=== PATIENT | male | born 1935 | race Caucasian/White ===

== ENCOUNTER → 2017-01-22 | Outpatient (CLI) | payer OTHER | LOC: BHFA 11:00 | PROVIDERS: ATTEND Internal Medicine Cardiovascular Disease | DX: R00.1 Bradycardia, unspecified (principal) ==

== ENCOUNTER 2017-09-23 22:12 | Emergency (ER) | payer OTHER ==
--- NOTE | 2017-09-23 22:16 | EDPHY ---
H & P Time Seen by Provider: 09/23/17 22:15 HPI/ROS: HPI CHIEF COMPLAINT: Irregular pulse. HISTORY OF PRESENT ILLNESS: Patient very pleasant 82-year-old male, he denies having any cardiovascular history except a month ago he was in [place] any noticed his heart rate was having very significant pauses and felt lightheaded felt like he was going to pass out. He had a pacemaker placed in [place]. Patient states this was a month ago. He did follow up with Dr. Nogueira when he returns [facility]. He denies any cardiovascular disease except having this pacemaker. The pacemaker was placed in his right chest. He states tonight he was sitting and resting about to go to bed and decided check his pulse. He felt a irregularity of it and decided come the emergency room to be evaluated. He denies any chest pain or shortness of breath. Denies fast heart rate or slow. Denies feeling like he is going to pass out. Denies chest pain or shortness of breath or syncope. Denies feeling like he is going to pass out. Past Medical History: Hypertension, diabetes Past Surgical History: Recent right chest pacemaker. Social History: Denies daily use of drugs alcohol tobacco. Family History: Noncontributory ROS REVIEW OF SYSTEMS: A comprehensive 10 point review of systems is otherwise negative aside from elements mentioned in the history of present illness. Exam Constitutional appears well nontoxic no acute distress, triage nursing summary reviewed, vital signs reviewed, awake/alert. Eyes normal conjunctivae and sclera, EOMI, PERRLA. HENT normal inspection, atraumatic, moist mucus membranes, no epistaxis, neck supple/ no meningismus, no raccoon eyes. Respiratory clear to auscultation bilaterally, normal breath sounds, no respiratory distress, no wheezing. Cardiovascular right chest pacemaker insert and right chest clean incision line. rate normal, regular rhythm, no murmur, no edema, distal pulses normal. Gastrointestinal soft, non-tender, no rebound, no guarding, normal bowel sounds, no distension, no pulsatile mass. Genitourinary no CVA tenderness. Musculoskeletal no midline vertebral tenderness, full range of motion, no calf swelling, no tenderness of extremities, no meningismus, good pulses, neurovascularly intact. Skin pink, warm, & dry, no rash, skin atraumatic. Neurologic awake, alert and oriented x 3, AAOx3, moves all 4 extremities equally, motor intact, sensory intact, CN II-XII intact, normal cerebellar, normal vision, normal speech. Psychiatric normal mood/affect. Heme/Lymph/Immune no lymphadenopathy. Differential Diagnosis: Includes but is not limited to in a particular order cardiac arrhythmia, V-tach, VFib, AFib, other cardiac arrhythmia, bradycardia Medical Decision Making: Plan for this patient IV establishment with blood draw , check EKG and basic electrolytes, will add [employer] interrogate his pacemaker. Re-evaluation: EKG interpretation by me on record in [employer] system. Impression time of EK, this is an atrially paced rhythm. Otherwise unremarkable. I do not appreciate any signs of cardiac arrhythmia or ischemia. ED x-ray chest one view negative for acute cardiopulmonary disease. 1220: Patient has no chest pain or shortness of breath. He came because he thought his pulse was irregular. 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 His EKG is a paced rhythm. His blood work and electrolytes appropriate. Negative troponin. He has no chest pain or shortness of breath. 1220: We are waiting [employer] interrogation of the pacemaker. 0200AM: [employer] here to evaluate Pacer. 0223: Patient's pacemaker was interrogated by [employer]. There are no acute events. Some PVCs present. I have given him the rhythm strips and booklet to take to his cardiology appointment tomorrow. He has no chest pain or shortness of breath. His EKG is a paced rhythm. Chest x-ray is unremarkable. His electrolytes and blood work are appropriate. Troponin negative. He is eager to be discharged home. He has a follow-up appointment with Cardiology for pacemaker clinic tomorrow. I recommend he keeps this appointment follows up with them. Additionally should return emergency room if develops any worsening shortness of breath, chest pain, questions or concerns. Source: Patient - Medical/Surgical History Hx Asthma: No Hx Chronic Respiratory Disease: No Hx Diabetes: Yes Hx Cardiac Disease: Yes Hx Renal Disease: No Hx Cirrhosis: No Hx Alcoholism: No Hx HIV/AIDS: No Hx Splenectomy or Spleen Trauma: No Other PMH: Type 11 diabetes, HTN, Hyperlipidemia - Social History Smoking Status: Never smoked Constitutional: Initial Vital Signs Temperature (C) 36.6 C 09/23/17 22:15 Heart Rate 72 09/23/17 22:15 Respiratory Rate 16 09/23/17 22:15 Blood Pressure 176/95 H 09/23/17 22:15 O2 Sat (%) 95 09/23/17 22:15 O2 Delivery Mode Room Air Allergies/Adverse Reactions: sulfacetamide sodium [From Sulfamide] Allergy (Verified 09/23/17 22:18) Home Medications: Medication Instructions Recorded Glyburide 02/05/14 Lovastatin 02/05/14 Metformin 1000 mg 02/05/14 Aspirin 09/23/17 CeleBREX 09/23/17 Crestor 09/23/17 Glucosamine 09/23/17 Htzc 09/23/17 Vit D3-Vit K/Berberine/Hops 09/23/17 Medical Decision Making - Diagnostics Imaging Results: Imaging Impressions Chest X-Ray 09/23/17 22:34 Impression: 1. Pacemaker unit and leads appear to be in good position on AP view of the chest. Confirmation of good position of the leads can be made with lateral view as well. 2. No active cardiopulmonary disease seen. - Data Points Laboratory Results: Laboratory Results 09/23/17 22:35 09/23/17 22:35 09/23/17 09/23/17 22:35 22:35 WBC 6.76 10^3/uL 10^3/uL (3.80-9.50) RBC 4.34 10^6/uL L 10^6/uL (4.40-6.38) Hgb 14.0 g/dL g/dL (13.7-17.5) Hct 39.7 % L % (40.0-51.0) MCV 91.5 fL fL (81.5-99.8) MCH 32.3 pg pg (27.9-34.1) MCHC 35.3 g/dL g/dL (32.4-36.7) RDW 13.8 % % (11.5-15.2) Plt Count 151 10^3/uL 10^3/uL (150-400) MPV 9.2 fL fL (8.7-11.7) Neut % (Auto) 56.8 % % (39.3-74.2) Lymph % (Auto) 23.4 % % (15.0-45.0) Owen % (Auto) 12.4 % % (4.5-13.0) Eos % (Auto) 6.4 % % (0.6-7.6) Baso % (Auto) 0.6 % % (0.3-1.7) Nucleat RBC Rel Count 0.0 % % (0.0-0.2) Absolute Neuts (auto) 3.84 10^3/uL 10^3/uL (1.70-6.50) Absolute Lymphs (auto) 1.58 10^3/uL 10^3/uL (1.00-3.00) Absolute Monos (auto) 0.84 10^3/uL H 10^3/uL (0.30-0.80) Absolute Eos (auto) 0.43 10^3/uL H 10^3/uL (0.03-0.40) Absolute Basos (auto) 0.04 10^3/uL 10^3/uL (0.02-0.10) Absolute Nucleated RBC 0.00 10^3/uL 10^3/uL (0-0.01) Immature Gran % 0.4 % % (0.0-1.1) Immature Gran # 0.03 10^3/uL 10^3/uL (0.00-0.10) Sodium 138 mEq/L mEq/L (135-145) Potassium 3.9 mEq/L mEq/L (3.3-5.0) Chloride 106 mEq/L mEq/L (97-110) Carbon Dioxide 23 mEq/l mEq/l (22-31) Anion Gap 9 mEq/L mEq/L (8-16) BUN 23 mg/dL mg/dL (7-23) Creatinine 0.9 mg/dL mg/dL (0.7-1.3) Estimated GFR > 60 Glucose 178 mg/dL H mg/dL (70-100) Calcium 9.9 mg/dL mg/dL (8.5-10.4) Magnesium 2.2 mg/dL mg/dL (1.6-2.3) Creatine Kinase 104 IU/L IU/L (0-224) CK-MB (CK-2) Fraction 3.60 ng/mL ng/mL (0.00-4.55) Troponin I < 0.012 ng/mL ng/mL (0.000-0.034) Departure - Departure Disposition: Home, Routine, Self-Care Clinical Impression: Pacemaker, Palpitations Condition: Good Instructions: Heart Palpitations (ED), Pacemaker (DC) Additional Instructions: 1. Return emergency room if you have chest pain, shortness of breath or further questions or concerns. 2. Please follow up with her pacemaker Clinic in your spl[place]. Referrals: Nadia Moreno MD [Primary Care Provider] - As per Instructions
--- NOTE | 2017-09-23 22:35 | CPEKG ---
Heart Rate: 83 RR Interval: 723 P-R Interval: 196 QRSD Interval: 94 QT Interval: 408 QTC Interval: 480 QRS Jackson: -19 T Wave Jackson: 100 EKG Severity - ABNORMAL ECG - EKG Impression: ATRIAL-PACED RHYTHM EKG Impression: BORDERLINE LEFT AXIS DEVIATION EKG Impression: CONSIDER POSTERIOR INFARCT EKG Impression: BORDERLINE PROLONGED QT INTERVAL Electronically Signed By: Etienne Nicholson 24-Sep-2017 06:35:29
[2017-09-23 22:45] LABS: PLATELET COUNT 151 10^3/uL (150-400)
[2017-09-23 23:06] LABS: CREATINE KINASE 104 IU/L (0-224)
[2017-09-24 02:24] VITALS: BP 141/81
== END 2017-09-24 02:35 | disposition home or self-care (01) ==
DX: R00.2 Palpitations (principal); I10 Essential (primary) hypertension; E11.9 Type 2 diabetes mellitus without complications; Z79.82 Long term (current) use of aspirin; Z79.84 Long term (current) use of oral hypoglycemic drugs; Z95.0 Presence of cardiac pacemaker

== ENCOUNTER → 2018-01-28 | Outpatient (CLI) | payer OTHER | LOC: BHFA 14:00 | PROVIDERS: ATTEND Internal Medicine Cardiovascular Disease | DX: R94.31 Abnormal electrocardiogram [ECG] [EKG] (principal); I25.10 Atherosclerotic heart disease of native coronary artery without angina pectoris; R00.1 Bradycardia, unspecified | CPT/HCPCS: 78452; 93017; A9500; J2785 ==

== ENCOUNTER → 2018-02-16 | Outpatient (CLI) | payer OTHER | LOC: BHFA 15:30 | PROVIDERS: ATTEND Internal Medicine Cardiovascular Disease | DX: I25.10 Atherosclerotic heart disease of native coronary artery without angina pectoris (principal); R94.39 Abnormal result of other cardiovascular function study; Z95.0 Presence of cardiac pacemaker ==

== ENCOUNTER 2018-03-09 09:38 | Day surgery (SDC) | payer OTHER ==
--- NOTE | 2018-03-09 09:21 | PDPROPOC ---
Sedation Plan of Care Sedation Plan of Care: vital signs stable, mental status noted, patient educated of risks, benefits, alternatives, patient can tolerate sedation ASA Classification: ASA 2 Planned drugs: fentanyl, midazolam Mallampati Score: Class 2 Mallampati Reference Image: Patient passed 3-3-2 rule?: Yes
--- NOTE | 2018-03-09 09:22 | PDHPUP ---
History & Physical Update H&P update statement: This history and physical update is based on an assessment of the patient which was completed after admission or registration (within 24 hours), but prior to the surgery/procedure. H&P update: H&P reviewed & patient examined, no change in patient's condition since H&P completed (Reviewed my office note dated 02/16/2018)
[2018-03-09] MEDS ORDERED: DIAZEPAM 5 MG TAB PO ONE (09:43)
[2018-03-09] MEDS ORDERED: ASPIRIN EC 325 MG TAB PO ONE ×2 (09:43→09:44)
[2018-03-09] MEDS ORDERED: diphenhydrAMINE 25 MG CAP PO ONE ×2 (09:43→09:44)
[2018-03-09] MEDS ORDERED: NS 1,000 ML IV ONE (09:43)
[2018-03-09] MEDS ORDERED: FAMOTIDINE 20 MG TAB PO ONE (09:43)
[2018-03-09] MEDS ORDERED: FAMOTIDINE 20 MG TAB ONE (09:44)
[2018-03-09] MEDS ORDERED: DIAZEPAM 5 MG TAB ONE (09:44)
[2018-03-09 10:17] LABS: PLATELET COUNT 165 10^3/uL (150-400)
[2018-03-09 10:28] LABS: INR 0.99 (0.83-1.16); PROTIME(PATIENT) 13.3 SEC (12.0-15.0)
[2018-03-09] MEDS ORDERED: LIDOCAINE 1% 300 MG/30 ML SDV ONE (10:55)
[2018-03-09] MEDS ORDERED: MIDAZOLAM 2 MG/2 ML VIAL ONE (10:56)
[2018-03-09] MEDS ORDERED: IOPAMIDOL (ISOVUE-370) 150 ML BTL IV ONE (10:56)
[2018-03-09] MEDS ORDERED: fentaNYL 100 MCG/2 ML INJ ONE (10:56)
[2018-03-09] MEDS ORDERED: NITROGLYCERIN 0.4 MG BTL SL PRN (11:59)
[2018-03-09] MEDS ORDERED: OXYCODONE/APAP 5/325 TAB PO PRN (11:59)
[2018-03-09] MEDS ORDERED: ONDANSETRON 4 MG/2 ML VIAL IVP PRN (11:59)
[2018-03-09] MEDS ORDERED: ATROPINE SULFATE 1 MG/10 ML SYR IVP PRN (11:59)
[2018-03-09] MEDS ORDERED: HYDROCODONE/APAP 5/325 TAB PO PRN (11:59)
--- NOTE | 2018-03-09 11:59 | PDDXCAT ---
Diagnostic Cath Note - . Date: 03/09/18 Painter Plate: Jeronimo Indication: other (known high calcium score of 1000; moderate risk MPI) - Procedure Access: right groin Procedure: left heart catheterization, coronary angiography, left ventriculogram - Materials Left Heart Cath size: 6F (long sheath used for iliac artery tortuosity) Left Heart Cath materials: standard multipack (JL4, JR4, pigtail) - Findings-Left Heart Catheterization LM: plaque without flow limiting disease. bifurcates into LAD and LCx LAD: 50% mid vessel stenosis. Ostial D1 60% stenosis LCX: one large OM. Mild luminal irregularities throughout the LCx and OM1 RCA: dominant. large vessel. Mild luminal irregularities EDP: 20 LVEF: 65 Wall motion: normal - Findings-Right Heart Catheterization AO: 135/80. No gradient upon pullback of the catheter from the LV to the Ao Complications: none Estimated blood loss: <50ml Closure method: Angioseal Assessment: Nonflow limiting CAD. Normal LVEF Plan: Continue aggressive medical management
== END 2018-03-09 15:45 | disposition home or self-care (01) ==
LOC: FCATH 09:38
PROVIDERS: ATTEND Internal Medicine Cardiovascular Disease
DX: I25.10 Atherosclerotic heart disease of native coronary artery without angina pectoris (principal); R94.39 Abnormal result of other cardiovascular function study; R94.31 Abnormal electrocardiogram [ECG] [EKG]; I10 Essential (primary) hypertension; E11.9 Type 2 diabetes mellitus without complications; I49.5 Sick sinus syndrome; G47.33 Obstructive sleep apnea (adult) (pediatric); Z85.46 Personal history of malignant neoplasm of prostate; Z95.0 Presence of cardiac pacemaker
CPT/HCPCS: C1760; C1769; J1644; J2250; J3010; Q9967

== ENCOUNTER → 2018-10-07 | Outpatient (CLI) | payer OTHER | LOC: FIMAGING 11:10 ==

== ENCOUNTER → 2018-10-19 | Outpatient (CLI) | payer OTHER | LOC: FIMAGING 15:36 ==